=== PATIENT | female | born 1950 | race Caucasian/White ===

== ENCOUNTER → 2023-03-09 10:06 | Outpatient (BNVA) | payer SELFPAY | PROVIDERS: Visit Provider Internal Medicine | DX: S00.33XA Contusion of nose, initial encounter (principal); W18.31XA Fall on same level due to stepping on an object, initial encounter; W01.118A Fall on same level from slipping, tripping and stumbling with subsequent striking against other sharp object, initial encounter | CPT/HCPCS: 99202 ==